=== PATIENT | male | born 1955 | race Caucasian/White ===

== ENCOUNTER → 2018-02-28 07:24 | Outpatient (CLI) | payer BC, OTHER, SELFPAY ==
[2018-02-28 09:51] LABS: ALB/GLOB Ratio 0.9 RATIO (0.9-2.4); AST(SGOT) 34 U/L (15-37); Alanine Aminotransfer ALT/SGPT 46 U/L (16-61); Albumin, Serum 4.1 g/dL (3.2-5.0); Alkaline Phosphatase 35 U/L (45-117); Anion Gap 10 (5-15); BUN 17 mg/dL (7-18); BUN/Creat Ratio 15.9 RATIO (10-20); Calcium,Total 9.5 mg/dL (8.5-10.1); Chloride 102 mmol/L (98-107); Cholesterol 156 mg/dL (200); Creatinine, Serum 1.07 mg/dL (0.70-1.30); EST Glomerular Filtration Rate 75 mL/min (>60); Est Glom Filt Rate - Afr Amer 90 mL/min (>60); Globulin 4.4 g/dL (2.2-4.2); Glucose 165 mg/dL (74-106); High Density Lipoprotein 32 mg/dL; Potassium 4.3 mmol/L (3.5-5.1); Protein, Total 8.5 g/dL (6.4-8.2); Sodium Level 137 mmol/L (136-145); Triglycerides 315 mg/dL; Very Low Density Lipoprotein 63 mg/dL (5-40)
== END ==
PROVIDERS: Family Provider Family Medicine; PCP Family Medicine; Visit Provider Family Medicine
DX: I10 Essential (primary) hypertension (principal); E11.65 Type 2 diabetes mellitus with hyperglycemia; E78.5 Hyperlipidemia, unspecified
CPT/HCPCS: 36415; 80053; 80061; 83036

== ENCOUNTER → 2018-06-08 08:20 | Outpatient (CLI) | payer BC, OTHER, SELFPAY ==
[2018-06-08 09:29] LABS: Hemoglobin A1c 6.9 % (4.2-6.3)
== END ==
PROVIDERS: Family Provider Family Medicine; PCP Family Medicine; Visit Provider Family Medicine
DX: E11.9 Type 2 diabetes mellitus without complications (principal)
CPT/HCPCS: 36415; 83036

== ENCOUNTER → 2018-09-25 08:21 | Outpatient (CLI) | payer BC, OTHER, SELFPAY ==
[2018-09-25 09:03] LABS: Hemoglobin A1c 6.8 % (4.2-6.3)
[2018-09-25 09:15] LABS: Cholesterol 151 mg/dL (200); High Density Lipoprotein 36 mg/dL; Triglycerides 219 mg/dL; Very Low Density Lipoprotein 44 mg/dL (5-40)
== END ==
PROVIDERS: Family Provider Family Medicine; PCP Family Medicine; Referring Provider Family Medicine; Visit Provider Family Medicine
DX: I10 Essential (primary) hypertension (principal); E11.65 Type 2 diabetes mellitus with hyperglycemia; E78.5 Hyperlipidemia, unspecified
CPT/HCPCS: 36415; 80061; 83036

== ENCOUNTER → 2018-12-08 09:40 | Outpatient (CLI) | payer BC, OTHER, SELFPAY ==
[2018-12-08 11:05] LABS: Hematocrit 45.9 % (40-54); Hemoglobin 15.1 g/dl (13.0-16.5); Mean Corp Hgb Conc 32.9 g/gl (32-36); Mean Corpuscular Volume 94.3 fL (80-94); Mean Platelet Vol. 10.5 fl (6.2-12.0); Microalbumin,Random Urine 5.7 mg/L (NO RANGE EST.); Microalbumin:Creatinine Ratio 8.3 mg/g CRE (<30 mg/g CRE); Platelet Count 233 K/mm3 (150-450); RBC Distribution Width CV 13.4 % (11.6-14.6); RBC Distribution Width SD 44.5 fl (35.1-43.9); Red Blood Count 4.87 M/mm3 (4.6-6.2); White Blood Count 7.1 K/mm3 (4.4-11.0)
[2018-12-08 11:07] LABS: Scan Indicated on CBC? Y/N NO
== END ==
PROVIDERS: Family Provider Family Medicine; PCP Family Medicine; Referring Provider Family Medicine; Visit Provider Family Medicine
DX: Z79.899 Other long term (current) drug therapy (principal)
CPT/HCPCS: 36415; 82043; 82570; 85027

== ENCOUNTER → 2019-05-21 | Outpatient (CLI) | payer BC, OTHER, SELFPAY ==
[2019-05-21 08:17] LABS: AST(SGOT) 26 U/L (15-37); Alanine Aminotransfer ALT/SGPT 41 U/L (16-61); Albumin, Serum 4.1 g/dL (3.2-5.0); Alkaline Phosphatase 35 U/L (45-117); Anion Gap 7 (5-15); BUN 21 mg/dL (7-18); BUN/Creat Ratio 18.3 RATIO (10-20); Calcium,Total 9.7 mg/dL (8.5-10.1); Chloride 103 mmol/L (98-107); Cholesterol 148 mg/dL (200); Creatinine, Serum 1.15 mg/dL (0.70-1.30); EST Glomerular Filtration Rate 68 mL/min (>60); Est Glom Filt Rate - Afr Amer 83 mL/min (>60); Globulin 4.2 g/dL (2.2-4.2); Glucose 155 mg/dL (74-106); High Density Lipoprotein 36 mg/dL; Potassium 4.6 mmol/L (3.5-5.1); Protein, Total 8.3 g/dL (6.4-8.2); Sodium Level 137 mmol/L (136-145); Triglycerides 314 mg/dL; Very Low Density Lipoprotein 63 mg/dL (5-40)
[2019-05-21 09:00] LABS: Hemoglobin A1c 7.9 % (4.2-6.3)
== END | disposition home or self-care (01) ==
PROVIDERS: Family Provider Family Medicine; PCP Family Medicine; Referring Provider Family Medicine; Visit Provider Family Medicine
DX: I10 Essential (primary) hypertension (principal); E11.9 Type 2 diabetes mellitus without complications; E78.5 Hyperlipidemia, unspecified
CPT/HCPCS: 36415; 80053; 80061; 83036

== ENCOUNTER → 2020-06-25 | Outpatient (CLI) | payer BC, OTHER, SELFPAY ==
[2020-06-25 09:50] LABS: Hemoglobin A1c 6.5 % (3.8-5.6)
[2020-06-25 09:51] LABS: Microalbumin,Random Urine 10.1 mg/L (NO RANGE EST.); Microalbumin:Creatinine Ratio 5.8 mg/g CRE (<30 mg/g CRE)
[2020-06-25 10:04] LABS: AST(SGOT) 18 U/L (15-37); Alanine Aminotransfer ALT/SGPT 36 U/L (16-61); Albumin, Serum 4.1 g/dL (3.2-5.0); Alkaline Phosphatase 33 U/L (45-117); Anion Gap 5 (5-15); BUN 19 mg/dL (7-18); BUN/Creat Ratio 18.3 RATIO (10-20); Calcium,Total 9.6 mg/dL (8.5-10.1); Chloride 103 mmol/L (98-107); Cholesterol 136 mg/dL (200); Creatinine, Serum 1.04 mg/dL (0.70-1.30); EST Glomerular Filtration Rate 77 mL/min (>60); Est Glom Filt Rate - Afr Amer 93 mL/min (>60); Globulin 4.3 g/dL (2.2-4.2); Glucose 127 mg/dL (74-106); High Density Lipoprotein 35 mg/dL; Potassium 4.3 mmol/L (3.5-5.1); Protein, Total 8.4 g/dL (6.4-8.2); Sodium Level 133 mmol/L (136-145); Triglycerides 224 mg/dL; Very Low Density Lipoprotein 45 mg/dL (5-40)
== END | disposition home or self-care (01) ==
PROVIDERS: PCP Family Medicine; Referring Provider Family Medicine; Visit Provider Family Medicine
DX: E11.9 Type 2 diabetes mellitus without complications (principal); E78.5 Hyperlipidemia, unspecified; I10 Essential (primary) hypertension
CPT/HCPCS: 36415; 80053; 80061; 82043; 82570; 83036

== ENCOUNTER → 2021-03-26 08:03 | Outpatient (CLI) | payer BC, OTHER, SELFPAY ==
[2021-03-26 12:36] LABS: ALB/GLOB Ratio 0.9 RATIO (0.9-2.4); AST(SGOT) 22 U/L (15-37); Alanine Aminotransfer ALT/SGPT 38 U/L (16-61); Albumin, Serum 4.1 g/dL (3.2-5.0); Alkaline Phosphatase 33 U/L (45-117); Anion Gap 8 (5-15); BUN 22 mg/dL (7-18); Calcium,Total 9.9 mg/dL (8.5-10.1); Chloride 103 mmol/L (98-107); Cholesterol 269 mg/dL (200); Creatinine, Serum 1.05 mg/dL (0.70-1.30); EST Glomerular Filtration Rate 76 mL/min (>60); Est Glom Filt Rate - Afr Amer 91 mL/min (>60); Globulin 4.4 g/dL (2.2-4.2); Glucose 165 mg/dL (74-106); Hemoglobin A1c 7.1 % (3.8-5.6); High Density Lipoprotein 36 mg/dL; Potassium 4.4 mmol/L (3.5-5.1); Protein, Total 8.5 g/dL (6.4-8.2); Sodium Level 136 mmol/L (136-145); Triglycerides 495 mg/dL
== END ==
PROVIDERS: PCP Family Medicine; Referring Provider Family Medicine; Visit Provider Family Medicine
DX: E11.9 Type 2 diabetes mellitus without complications (principal); E78.5 Hyperlipidemia, unspecified; E87.1 Hypo-osmolality and hyponatremia
CPT/HCPCS: 36415; 80053; 80061; 83036

== ENCOUNTER 2021-04-09 09:18 | Emergency (ER) | payer BC, OTHER, SELFPAY ==
[2021-04-08 10:17] VITALS: BMI 39.0
[2021-04-09 09:19] VITALS: BP 148/101; PULSE 101; RESP 6; TEMP 36.6; O2SAT 97; BMI 38.1
--- NOTE | 2021-04-09 09:32 | EDS_ITS ---
HPI History of Present Illness Chief Complaint: Abd Pain Informant: patient and spouse/S.O. Narrative Narrative: 65-year-old male presents with lower abdominal pain since Tuesday. He states he has had some discomfort but it was mild. He spoke with his surgeon Dr. Albert who ordered a CAT scan. This was to be performed next week. Unfortunately his pain worsened significantly since Tuesday. He noted he had some chills last night but did not have a fever. He notes chronic loose stools. He denies any urinary symptoms. He does note that he was told he has diverticulosis but it has not really given him much pain. He has had prior hernia surgeries. [facility] Medical History (Updated 04/09/21 @ 10:[address] Joaquin Esparza, DO) Diabetes Mixed hyperlipidemia Obesity Home Medications cholecalciferol (vitamin D3) 25 mcg (1,000 unit) capsule 75 mcg PO DAILY cap 03/24/21 [History Last Taken Unknown] dulaglutide 1.5 mg/0.5 mL subcutaneous pen injector 1.5 mg SUBCUT QWEEK 03/24/21 [History Last Taken Unknown] garlic 1,000 mg capsule 1,000 mg PO DAILY cap 03/24/21 [History Last Taken Unknown] lisinopril 10 mg tablet 10 mg PO DAILY 03/24/21 [History Last Taken Unknown] omega-3 fatty acids 1,000 mg capsule 1,000 mg PO DAILY 03/24/21 [History Last Taken Unknown] omeprazole 10 mg capsule,delayed release 10 mg PO .qod cap 03/24/21 [History Last Taken Unknown] simvastatin 40 mg tablet 40 mg PO DAILY 03/24/21 [History Last Taken Unknown] zinc acetate 50 mg (zinc) capsule 50 mg PO DAILY 03/24/21 [History Last Taken Unknown] glimepiride 2 mg tablet 2 mg PO DAILY #90 tab 04/08/21 [Rx Last Taken Unknown] ciprofloxacin HCl 500 mg PO BID #20 tablet 04/09/21 [Rx Last Taken Unknown] hydrocodone-acetaminophen 1 tab PO Q6H PRN PRN 3 Days #12 tablet 04/09/21 [Rx Last Taken Unknown] metronidazole 500 mg PO Q8H #30 tab 04/09/21 [Rx Last Taken Unknown] Allergy/AdvReac Type Severity Reaction Status Date / Time metformin AdvReac Mild diarrhea Verified 04/08/21 10:37 Surgical History H/O inguinal hernia repair Social History (Updated 04/09/21 @ 09:[address] Joaquin Esparza, DO) Smoking Status: Never smoker substance use type: does not use ROS ROS ED Constitutional Constitutional ED: Denies chills or weight loss Eyes Eyes: Denies change in vision or diplopia ENT ENT ED: Denies ear pain, rhinorrhea or sore throat Cardiovascular Cardiovascular: Denies chest pain, orthopnea, palpitations or racing heartbeat Respiratory/Chest Respiratory/Chest: Denies cough, dyspnea or orthopnea Gastrointestinal Gastrointestinal: Reports abdominal pain, diarrhea and nausea; Denies vomiting Genitourinary Genitourinary ED: Denies dysuria, hematuria or urinary frequency Musculoskeletal Musculoskeletal: Denies arthralgias or myalgias Integumentary Denies abscess or rash Neurologic Neurologic: Denies headache(s) or weakness Psychiatric Psychiatric: Denies anxiety, depression, suicidal ideation or suicidal thoughts Endocrine Endocrinology: Denies polydipsia, polyphagia or polyuria Allergic/Immunologic Allergic/Immunologic ED: Denies mouth swelling, tongue swelling or urticaria EXAM Physical Exam Const Vital Signs: 04/09/21 09:19 Temperature 97.8 F Temperature Source Temporal Pulse Rate 101 H Respiratory Rate 6 L Blood Pressure 148/101 H Blood Pressure Mean 116 Pulse Ox 97 Oxygen Delivery Method Room Air Positive well nourished, well developed and obese General Appearance ED: well developed Nutritional Appearance: obese HEENT Reports normocephalic, head/scalp atraumatic and moist mucous membranes Eyes PERRL and EOMs intact bilaterally Neck no lymphadenopathy, supple and no JVD Resp normal respiratory effort and clear to auscultation bilaterally Cardio regular rate, regular rhythm and no murmurs GI Palpation: soft, tender LLQ and suprapubic and guarding Back/Spine no CVA tenderness and normal ROM Extremity normal to inspection General Extremety ED: Negative for edema General Extremity: Negative for edema Neuro oriented x3 and CN's II-XII intact bilaterally Sensorium / Orientation: alert Motor Exam: strength 5/5 throughout Psych mental status grossly normal Mood & Affect: Negative for depressed or tearful Skin no rashes or lesions noted and no wounds MDM MDM MDM Narrative Medical decision making narrative: Patient is a slight leukocytosis of 11.5. Urinalysis is normal. CT of the of the pelvis demonstrates simple uncomplicated sigmoid diverticulitis. Patient will receive pain medication and prescriptions for Cipro and Flagyl. He should follow up with Dr. Albert. Lab Data Labs: Laboratory Results - last 24 hr 04/09/21 04/09/21 04/09/21 09:45 09:45 09:45 WBC 11.5 H RBC 4.87 Hgb 15.0 Hct 45.5 MCV 93.4 MCH 30.8 MCHC 33.0 RDW Std Deviation 44.3 H RDW Coeff of Rand 12.9 Plt Count 245 MPV 10.3 Immature Gran % (Auto) 0.400 Neut % (Auto) 76.6 H Lymph % (Auto) 12.3 L [place] % (Auto) 9.5 Eos % (Auto) 0.9 Baso % (Auto) 0.3 Absolute Neuts (auto) 8.8 H Absolute Lymphs (auto) 1.42 Nucleated RBC % 0 Sodium 135 L Potassium 4.4 Chloride 98 Carbon Dioxide 29.0 Anion Gap 8 BUN 16 Creatinine 1.04 Estim Creat Clear Calc 81.10 Est GFR (MDRD) Af Amer 92 Est GFR (MDRD) Non-Af 76 BUN/Creatinine Ratio 15.4 Glucose 178 H Calcium 9.7 Total Bilirubin 0.70 AST 9 L ALT 23 Alkaline Phosphatase 48 Total Protein 8.6 H Albumin 3.9 Globulin 4.7 H Albumin/Globulin Ratio 0.8 L Urine Color Yellow Urine Clarity Clear Urine pH 6.0 Ur Specific [place] 1.015 Urine Protein Negative Urine Glucose (UA) Normal Urine Ketones Negative Urine Occult Blood Negative Urine Nitrite Negative Urine Bilirubin Negative Urine Urobilinogen Normal Ur Leukocyte Esterase Negative Urine RBC 0 SEEN Urine WBC 0 SEEN Ur Squamous Epith Cells 0 SEEN Urine Bacteria 0 SEEN Urine Mucus 0 SEEN Radiography Diagnostic Testing: Radiology Impression Abdomen/Pelvis CT 04/09/21 10:16 IMPRESSION: Findings in comparison with noncomplicated acute sigmoid diverticulitis. Electronically Signed: Edward Deal MD at 10:29 EDT , Service support , Discharge Plan Triage Chief Complaint: Abd Pain ED Provider: Joaquin Esparza Dx/Rx/DC Orders Clinical Impression: Sigmoid diverticulitis Instructions: ED Diverticulitis Prescriptions: New hydrocodone-acetaminophen [hydrocodone-acetaminophen] 1 TABLET tablet 1 tab PO Q6H PRN PRN (Reason: Pain) 3 Days Qty: 12 RF: 0 metronidazole [metronidazole] 500 MG tablet 500 mg PO Q8H Qty: 30 RF: 0 ciprofloxacin HCl [ciprofloxacin HCl] 500 MG tablet 500 mg PO BID Qty: 20 RF: 0 No Action Trulicity 1.5 mg/0.5 mL pen injector 1.5 mg subcut QWEEK RF: 0 lisinopril 10 mg tablet 10 mg PO DAILY RF: 0 simvastatin 40 mg tablet 40 mg PO DAILY RF: 0 omeprazole 10 mg capsule,delayed release(DR/EC) 10 mg PO .qod RF: 0 cholecalciferol (vitamin D3) 25 mcg (1,000 unit) capsule 75 mcg PO DAILY RF: 0 Galzin 50 mg (zinc) capsule 50 mg PO DAILY RF: 0 garlic 1,000 mg capsule 1,000 mg PO DAILY RF: 0 omega-3 fatty acids [Fish Oil Concentrate] 1,000 mg capsule 1,000 mg PO DAILY RF: 0 glimepiride 2 mg tablet 2 mg PO DAILY Qty: 90 RF: 0 Primary Care Provider: Primo Basilio Referrals: Primo Basilio MD [Primary Care Provider] - Jesus Aparicio MD [STAFF PHYSICIAN] - 1 Week if not improving Disposition Disposition: Home, self care
[2021-04-09 09:52] LABS: Bacteria 0 SEEN /hpf (None Seen); Mucous, Urine 0 SEEN /hpf (<or=2+); Red Blood Cells-Urine 0 SEEN /hpf (0-5); Squamous Epithelial Cells - UA 0 SEEN /hpf (0-5); White Blood Cells 0 SEEN /hpf (0-5)
[2021-04-09] MEDS: Ondansetron 4 MG/2 ML Vial IV (09:53)
[2021-04-09] MEDS: Morphine 4 MG/ML Syringe IV (09:53)
[2021-04-09 10:00] LABS: Absolute Lymphocyte Count 1.42 X10^3/uL (0.83-4.51); Absolute Neutrophil Count 8.8 X10^3/uL (2.0-7.7); Basophil# 0.03 X10^3/uL; Basophil% 0.3 % (0-1); Color, Urine Yellow (Yellow); Eosinophils% 0.9 % (0-5); Glucose, Dipstick Normal (Normal); Hematocrit 45.5 % (40-54); Ketone-Dipstick Negative (Negative); Leukocyte Esterase-Dipstick Negative /ul (Negative); Lymphocyte # 1.42 X10^3/ul (0.83-4.51); Lymphocyte % 12.3 % (19-41); Mean Corpuscular Hgb 30.8 pg (27.0-32.0); Mean Corpuscular Volume 93.4 fL (80-94); Mean Platelet Vol. 10.3 fl (6.2-12.0); Monocyte% 9.5 % (0-10); NRBC Flagged by Analyzer 0 % (0-5); Neutrophil # 8.83 X10^3/uL (2.7-7.7); Neutrophil % 76.6 % (47-70); Nitrite-Dipstick Negative (Negative); Occult Blood-Urine Negative /ul (Negative); Platelet Count 245 K/mm3 (150-450); Protein-Dipstick Negative (Negative); RBC Distribution Width CV 12.9 % (11.6-14.6); RBC Distribution Width SD 44.3 fl (35.1-43.9); Red Blood Count 4.87 M/mm3 (4.6-6.2); Specific Gravity, Urine 1.015 (1.002-1.030); Urine Bilirubin Dipstick Negative (Negative); Urine Clarity Clear (Clear); Urine Urobilinogen Normal (Normal); White Blood Count 11.5 K/mm3 (4.4-11.0)
[2021-04-09 10:08] LABS: ALB/GLOB Ratio 0.8 RATIO (0.9-2.4); AST(SGOT) 9 U/L (15-37); Alanine Aminotransfer ALT/SGPT 23 U/L (16-61); Albumin, Serum 3.9 g/dL (3.2-5.0); Alkaline Phosphatase 48 U/L (45-117); Anion Gap 8 (5-15); BUN 16 mg/dL (7-18); BUN/Creat Ratio 15.4 RATIO (10-20); Calcium,Total 9.7 mg/dL (8.5-10.1); Chloride 98 mmol/L (98-107); Creatinine, Serum 1.04 mg/dL (0.70-1.30); EST Glomerular Filtration Rate 76 mL/min (>60); Est Glom Filt Rate - Afr Amer 92 mL/min (>60); Globulin 4.7 g/dL (2.2-4.2); Glucose 178 mg/dL (74-106); Potassium 4.4 mmol/L (3.5-5.1); Protein, Total 8.6 g/dL (6.4-8.2); Sodium Level 135 mmol/L (136-145)
--- NOTE | 2021-04-09 10:16 | CT_ITS ---
STUDY: CT ABDOMEN AND PELVIS WITH CONTRAST REASON FOR EXAM: Male, 65 years old. Abdominal pain. Left lower quadrant pain. RADIATION DOSAGE (If Supplied By Facility): CTDIvol = ( 16.98 ) mGy, DLP = ( 1512.45 ) mGycm TECHNIQUE: Transaxial images were obtained from the dome of the diaphragm to the symphysis pubis without oral contrast. IV 100mL Isovue-300 was administered. Sagittal and coronal images were reconstructed. Individualized dose optimization techniques were used for this CT. COMPARISON: None. FINDINGS: The visualized lung bases are unremarkable. Coronary artery calcifications. There is decreased attenuation of the liver consistent with steatosis. Normal gallbladder and extrahepatic biliary system. Normal spleen. Normal pancreas. Normal bilateral adrenal glands. Normal right kidney. Normal left kidney. Normal visualized stomach. Normal small intestine. There is diverticulosis, with thickening of the colon wall, and pericolonic inflammation changes consistent with acute diverticulitis. The appendix is visualized and appears normal. There is diffuse atherosclerotic calcification of the abdominal aorta, without a demonstrated aneurysm. Normal inferior vena cava. Normal retroperitoneum. Normal urinary bladder. Evidence of prior bilateral inguinal hernia repairs. There are diffuse degenerative changes of the visualized lumbar spine. 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 CT/Abdomen/Pelvis W IV Cont ONLY IMPRESSION: Findings in comparison with noncomplicated acute sigmoid diverticulitis. Electronically Signed: Edward Deal MD at 10:29 EDT , Service support ,
== END 2021-04-09 11:40 | disposition home or self-care (01) ==
PROVIDERS: Emergency Provider Emergency Medicine; PCP Family Medicine
DX: K57.32 Diverticulitis of large intestine without perforation or abscess without bleeding (principal); E11.9 Type 2 diabetes mellitus without complications; E78.2 Mixed hyperlipidemia; E66.9 Obesity, unspecified; Z79.84 Long term (current) use of oral hypoglycemic drugs; Z79.899 Other long term (current) drug therapy
CPT/HCPCS: 74177; 80053; 81001; 85025; 96374; 96375; 99283; Q9967; A4216; J2405

== ENCOUNTER → 2022-05-26 | Outpatient (CLI) | payer MEDICARE, BC, OTHER, SELFPAY | END | disposition home or self-care (01) | PROVIDERS: PCP Family Medicine | DX: Z95.1 Presence of aortocoronary bypass graft (principal) | CPT/HCPCS: 93798 ==

== ENCOUNTER → 2022-06-01 | Outpatient (CLI) | payer MEDICARE, BC, OTHER, SELFPAY ==
--- NOTE | 2022-06-01 12:51 | STRESSREP ---
Stress Test Report Date: 06-01-2022 Procedure: Exercise tolerance test Indications: CAD; CABG Consent: Per the patient Procedure: The patient exercised on a Sy protocol for 5 minutes and 57 minutes completing Stage I and 2 minutes and 57 seconds of Stage II achieving a peak heart rate of 151 bpm (97% predicted maximal heart rate) with a peak blood pressure 180/88 mmHg and a peak MET capacity of approximately 7 MET's. The baseline ECG demonstrated normal sinus rhythm; poor R wave progression; nonspecific ST/T wave abnormality. The peak exercise ECG demonstrated somatic/motion artifact with no obvious ECG changes. There was a rare PVC during exercise and recovery. The functional capacity was considered good. The patient had no complaint of chest discomfort during exercise or recovery. The examination was discontinued secondary to dyspnea and leg fatigue. Impression: 1. Technically adequate (percent predicted maximal heart rate greater than 85%) exercise tolerance test 2. Peak exercise ECG with with somatic/motion artifact with continued nonspecific ST/T wave abnormality 3. There was a rare PVC during exercise and recovery This note was generated with [employer] software. It may contain incorrect words, spelling, and punctuation that were not noted in checking the note before signing.
== END | disposition home or self-care (01) ==
PROVIDERS: PCP Family Medicine
DX: Z95.1 Presence of aortocoronary bypass graft (principal)
CPT/HCPCS: 93017

== ENCOUNTER 2024-09-25 12:54 | Emergency (ER) | payer MEDICARE, BC, OTHER, SELFPAY ==
[2024-09-25 12:54] VITALS: BP 140/110; PULSE 88; RESP 16; TEMP 36; O2SAT 98; BMI 37.0
--- NOTE | 2024-09-25 13:11 | EDS_ITS ---
HPI History of Present Illness Chief Complaint: Numb/Ting Informant: patient Onset/Context/Timing Onset: Today Context: Gradual Onset Timing: Continuous Quality: Weakness, numbness Location: Left face Worsened by: Nothing Relieved by: Nothing Narrative Narrative: The patient presents with numbness and tingling to the left side of his face. Patient states he has had intermittent paresthesias to the left side of his face over the past year. Patient states that today he noted some weakness to the left side of his face as well. Patient states he called his primary care physician's office and was told to come to the emergency department to be evaluated for Flannery's palsy. Patient denies any visual changes. Patient denies any headache. Patient denies any paresthesias or weakness down his arm or leg. Patient denies any neck or back pain. Patient denies any fevers or chills. Patient states he did have a sore throat recently but denies any other cough or shortness of breath. [facility] Medical History Abnormal stress test Obesity Mixed hyperlipidemia Diabetes Home Medications ?Medication ?Instructions ?Recorded ?Last Taken ?Type garlic 1,000 mg capsule 1,000 mg PO DAILY 03/24/21 Unknown History lisinopril 10 mg tablet 10 mg PO DAILY 03/24/21 Unknown History omega-3 fatty acids 1,000 mg 1,000 mg PO DAILY 03/24/21 Unknown History capsule (Fish Oil Concentrate) omeprazole 10 mg capsule,delayed 10 mg PO .qod 03/24/21 Unknown History release simvastatin 40 mg tablet 40 mg PO DAILY 03/24/21 Unknown History zinc acetate 50 mg (zinc) capsule 50 mg PO DAILY 03/24/21 Unknown History (Galzin) hydrocodone-acetaminophen 5-325mg 1 tab PO Q6H PRN PRN Pain 3 days 04/09/21 Unknown Rx 5mg-325mg #12 TABLETS metronidazole 500 mg tablet 500 mg PO Q8H #30 tabs 04/09/21 Unknown Rx cholecalciferol (vitamin D3) 25 3,000 unit PO DAILY 10/06/21 Unknown History mcg (1,000 unit) capsule atorvastatin 40 mg tablet 40 mg PO 07/26/22 Unknown History dulaglutide 3 mg/0.5 mL 3 mg (0.5 mL) subcut QWEEK #6 mL 07/26/22 Unknown Rx subcutaneous pen injector ([facility]) glimepiride 2 mg tablet 2 mg PO .COMPLEX #135 tabs 07/26/22 Unknown Rx metoprolol succinate 50 mg 50 mg PO 07/26/22 Unknown History tablet,extended release 24 hr blood sugar diagnostic (OneTouch #200 ea 12/29/22 Unknown Rx Verio test strips) prednisone 20 mg tablet 60 mg (3 x 20 mg) PO DAILY #15 09/25/24 Unknown Rx TABLETS Allergy/AdvReac Type Severity Reaction Status Date / Time metformin AdvReac Mild diarrhea Verified 07/26/22 09:07 Surgical History H/O inguinal hernia repair Social History Smoking Status: Never smoker substance use type: does not use ROS ROS ED Constitutional Constitutional ED: Denies chills or fever(s) Eyes Eyes: Denies blurry vision or change in vision ENT ENT ED: Reports sore throat; Denies rhinorrhea Cardiovascular Cardiovascular: Denies chest pain or palpitations Respiratory/Chest Respiratory/Chest: Denies cough or dyspnea Gastrointestinal Gastrointestinal: Reports diarrhea and nausea; Denies vomiting Genitourinary Genitourinary ED: Denies dysuria or hematuria Musculoskeletal Musculoskeletal: Denies back pain or neck pain Integumentary Denies abscess or rash Neurologic Neurologic: Reports headache(s); Denies weakness Allergic/Immunologic Allergic/Immunologic ED: Denies mouth swelling or urticaria EXAM Physical Exam Const Vital Signs: 09/25/24 12:54 Temperature 96.8 F L Temperature Source Temporal Pulse Rate 88 Respiratory Rate 16 Blood Pressure 140/110 H Blood Pressure Mean 120 Pulse Ox 98 Oxygen Delivery Method Room Air Positive well nourished and well developed General Appearance ED: well developed and NAD HEENT Reports TM's clear and moist mucous membranes Tympanic Membrane ED: Yes TM's clear bilateral Eyes PERRL and EOMs intact bilaterally Neck supple and no JVD Resp normal respiratory effort and clear to auscultation bilaterally Cardio regular rate and regular rhythm GI non-tender and non-distended Palpation: soft Back/Spine no CVA tenderness Extremity normal to inspection General Extremety ED: Negative for edema or tenderness General Extremity: Negative for edema Neuro oriented x3 and no sensory deficits noted Neuro Narrative: Cranial nerves II through XII are intact except for left facial weakness. There was weakness with elevation of the left eyebrow. There is weakness with closing his left eye. There is weakness with smiling. Strength was otherwise 5/5 in t he upper and lower extremities. There are no sensory deficits noted. Sensorium / Orientation: alert Motor Exam: strength 5/5 throughout Psych mental status grossly normal MDM MDM MDM Narrative Medical decision making narrative: Patient was advised that this is most likely Flannery's palsy. Patient was given a prescription for prednisone. Patient was advised to monitor his blood sugars with this. Patient was instructed to follow-up with his primary care physician in 5 to 7 days. Patient was instructed return if worse in any way. Patient understood and was agreeable with the plan. All questions were answered. Discharge Plan Triage Chief Complaint: Numb/Ting ED Provider: Wolf Hernandez Dx/Rx/DC Orders Clinical Impression: Left-sided Flannery's palsy, Diabetes Instructions: ED Flannery's Palsy Prescriptions: New prednisone 20 mg tablet 60 mg PO DAILY Qty: 15 0RF No Action lisinopril 10 mg tablet 10 mg PO DAILY simvastatin 40 mg tablet 40 mg PO DAILY omeprazole 10 mg capsule,delayed release(DR/EC) 10 mg PO .qod Galzin 50 mg (zinc) capsule 50 mg PO DAILY garlic 1,000 mg capsule 1,000 mg PO DAILY omega-3 fatty acids [Fish Oil Concentrate] 1,000 mg capsule 1,000 mg PO DAILY cholecalciferol (vitamin D3) 25 mcg (1,000 unit) capsule 3,000 unit PO DAILY atorvastatin 40 mg tablet 40 mg PO metoprolol succinate 50 mg tablet extended release 24 hr 50 mg PO Trulicity 3 mg/0.5 mL pen injector 3 mg subcut QWEEK Qty: 6 3RF glimepiride 2 mg tablet 2 mg PO .COMPLEX Qty: 135 3RF Rx Instructions: 1 mg in the morning only if blood sugar is over 120 hydrocodone-acetaminophen [hydrocodone-acetaminophen] 1 TABLET tablet 1 tab PO Q6H PRN PRN (Reason: Pain) 3 Days Qty: 12 0RF metronidazole [metronidazole] 500 MG tablet 500 mg PO Q8H Qty: 30 0RF (DME) OneTouch Verio test strips Strip See Rx Instructions .Route Qty: 200 0RF Rx Instructions: twice a day Primary Care Provider: Sp Aguillon Referrals: Sp Aguillon MD [Primary Care Provider] - 5-7 Days Print Language: Brazilian Disposition Disposition: Home, Self Care
== END 2024-09-25 13:46 | disposition home or self-care (01) ==
PROVIDERS: Emergency Provider Emergency Medicine; PCP Family Medicine; Visit Provider Emergency Medicine
DX: G51.0 Bell's palsy (principal); E11.9 Type 2 diabetes mellitus without complications; E78.2 Mixed hyperlipidemia; Z79.899 Other long term (current) drug therapy; Z79.84 Long term (current) use of oral hypoglycemic drugs; Z79.85 Long-term (current) use of injectable non-insulin antidiabetic drugs
CPT/HCPCS: 99282